=== PATIENT | male | born 1960 | race Caucasian/White ===

== ENCOUNTER 2024-03-05 10:38 | Emergency (ER) | payer SELFPAY ==
[2024-03-05 10:43] VITALS: BP 159/100
[2024-03-05 10:44] VITALS: BMI 24.7
[2024-03-05 10:50] LABS: Glucose - Point of Care 103 mg/dl (70-99)
[2024-03-05 11:00] VITALS: BP 143/88
[2024-03-05 11:46] LABS: % Basophils 1.4 % (0-2); % Lymphocytes 49.4 % (20.5-51.1); % Monocytes 9.6 % (1.7-9.3); % Neutrophils 37.6 % (42.2-75.2); Absolute Basophils 0.1 10^3/uL (0-0.2); Absolute Eosinophils 0.1 10^3/uL (0-0.7); Absolute Lymphocytes 1.8 10^3/uL (1.2-3.4); Absolute Monocytes 0.3 10^3/uL (0.1-0.6); Absolute Neutrophils 1.3 10^3/uL (1.4-6.5); Hematocrit 39.5 % (39.0-52.0); Hemoglobin 13.7 g/dL (13.0-18.0); Mean Corp Hgb Conc. 34.7 g/dL (33.0-37.0); Mean Corpuscular Hgb 32.7 pg (27.0-31.0); Mean Corpuscular Volume 94.3 fL (80.0-94.0); Mean Platelet Volume 9.5 fL (7.4-10.4); Nucleated Red Blood Cells % 0 % (-); Platelet Count 157 10^3/uL (130-400); Red Blood Cell Count 4.19 10^6/uL (4.70-6.10); Red Cell Dist. Width 13.4 % (11.5-14.5); White Blood Cell Count 3.5 10^3/uL (4.8-10.8)
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
[2024-03-05 11:59] LABS: ALT (SGPT) 199 U/L (0-50); AST (SGOT) 235 U/L (17-59); Albumin 4.7 g/dl (3.5-5.0); Alkaline Phosphatase 83 U/L (38-126); Blood Urea Nitrogen 5 mg/dl (9-20); Calcium 9.3 mg/dl (8.4-10.2); Carbon Dioxide 26 mmol/L (22-30); Chloride 104 mmol/L (98-107); Estimated Creatinine Clearance 95 ml/min; Glucose 106 mg/dl (70-99); Potassium 4.2 mmol/L (3.5-5.1); Sodium 148 mmol/L (135-145); Total Bilirubin 0.7 mg/dl (0.2-1.3); Total Protein 7.5 g/dl (6.3-8.2); eGFR > 60.00
[2024-03-05 12:00] VITALS: BP 122/86
[2024-03-05 12:24] LABS: Alcohol 348 mg/dl
[2024-03-05 13:00] VITALS: BP 148/86
[2024-03-05 13:28] VITALS: BP 182/98
== END 2024-03-05 14:12 | disposition home or self-care (01) ==
LOC: EMR 10:38
PROVIDERS: EMERGENCY PHYSICIAN Student in an Organized Health Care Education/Training Program
DX: S00.12XA Contusion of left eyelid and periocular area, initial encounter (principal); S00.81XA Abrasion of other part of head, initial encounter; R41.0 Disorientation, unspecified; V18.0XXA Pedal cycle driver injured in noncollision transport accident in nontraffic accident, initial encounter; Y93.55 Activity, bike riding; Z86.16 Personal history of COVID-19
CPT/HCPCS: 99285; 70450; 72125; 80053; 82077; 82962; 85025; 93005